=== PATIENT | female | born 1990 | race Caucasian/White ===

== ENCOUNTER 2016-07-06 21:28 | Emergency (ER) | payer OTHER ==
[2016-07-06] MEDS ORDERED: Ketorolac INJ* 60 MG/2 ML VIAL IM ONE (21:29)
[2016-07-06] MEDS ORDERED: HYDROcodone/ACETAMIN 5-325 MG* 1 TAB PO ONE (21:30)
[2016-07-06 21:34] VITALS: BP 123/74
[2016-07-06] MEDS ORDERED: Acetaminop/Codeine 30 MG TAB* 1 TAB (300 MG/30 MG) PO ONE ×2 (21:36→22:01)
[2016-07-06] MEDS ORDERED: Silver Sulfadiazine 1%* 20 GM TOPICAL ONE (21:37)
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
[2016-07-06] MEDS ORDERED: Acetaminop/Codeine 30 MG TAB* 1 TAB (300 MG/30 MG) ONE ×2 (22:05→22:06)
== END 2016-07-06 22:09 | disposition home or self-care (01) ==
LOC: UCCORT 21:28
DX: T24.211A Burn of second degree of right thigh, initial encounter (principal); T31.0 Burns involving less than 10% of body surface; X12.XXXA Contact with other hot fluids, initial encounter; Y93.9 Activity, unspecified; Y92.9 Unspecified place or not applicable; Z88.5 Allergy status to narcotic agent
CPT/HCPCS: 96372; 99213; A9270-GY; G0463; J1885

== ENCOUNTER 2017-01-15 16:18 | Emergency (ER) | payer OTHER ==
[2017-01-15 16:32] VITALS: BP 130/87
[2017-01-15] MEDS ORDERED: Ketorolac INJ* 60 MG/2 ML VIAL IM ONE (16:41)
--- NOTE | 2017-01-15 16:41 | UC ---
Dental HPI - HPI Summary HPI Summary: patient had wisdom teeth extracted on 01/05. has had increased pain and swelling of the mouth. cannot eat or chew - History of Current Complaint Chief Complaint: UCDentalProblem Stated Complaint: DENTAL WISDOM TEETH Time Seen by Provider: 01/15/17 16:26 Hx Obtained From: Patient Hx Last Menstrual Period: - hasn't had a period ?: No Onset/Duration: Sudden Onset, Lasting Days Severity: Severe Related History: Previous Dental Care on Same Tooth, Swelling - Allergies/Home Medications Allergies/Adverse Reactions: Allergies Allergy/AdvReac Type Severity Reaction Status Date / Time Hydrocodone [From Vicodin] Allergy Mild Rash Verified 01/15/17 16:24 Oxycodone Allergy Mild Itching Verified 01/15/17 16:24 Home Medications: Home Medications Amoxicillin PO (*) [Amoxicillin 500 MG CAP*] 500 mg PO TID 01/15/17 [History Confirmed 01/15/17] Ibuprofen TAB* [Advil TAB*] 800 mg PO Q8H PRN 01/15/17 [History Confirmed ] oxyCODONE/Acetamin 5/325 MG* [Percocet 5/325 TAB*] 1 tab PO Q4H PRN 01/15/17 [ History Confirmed 01/15/17] PMH/Surg Hx/FS Hx/Imm Hx Previously Healthy: Yes - Surgical History Surgical History: Yes Surgery Procedure, Year, and Place: Tonsillectomy,Sigmoidoscopy,3 oral surgeries , wisdom teeth extraction - Family History Known Family History: Positive: Cardiac Disease, Hypertension, Diabetes - Social History Alcohol Use: None Substance Use Type: None Smoking Status (MU): Never Smoked Tobacco Have You Smoked in the Last Year: No - Immunization History Most Recent Tetanus Shot: 2-3 years ago Review of Systems Constitutional: Negative Skin: Negative ENT: Dental Pain, Ear Ache Respiratory: Negative Cardiovascular: Negative Gastrointestinal: Negative Genitourinary: Negative Motor: Negative Neurovascular: Negative Musculoskeletal: Negative Neurological: Negative Psychological: Negative All Other Systems Reviewed And Are Negative: Yes Physical Exam Triage Information Reviewed: Yes Appearance: Well-Nourished, Ill-Appearing, Pain Distress Vital Signs: Initial Vital Signs Temp 99.5 F 01/15/17 16:27 Pulse 71 01/15/17 16:27 Resp 16 01/15/17 16:27 BP 130/87 01/15/17 16:27 Pulse Ox 99 01/15/17 16:27 Vital Signs Reviewed: Yes Eye Exam: Normal Eyes: Positive: Conjunctiva Inflamed ENT: Positive: Pharynx normal, TMs normal Dental: Positive: Abscess @ - back lower jaw, Cervical Lymphadenopathy - left side, Other: - left lower jaw is inflammed, purulent exudate noted from the most posterior molar Respiratory Exam: Normal Respiratory: Positive: Chest non-tender, Lungs clear, Normal breath sounds Cardiovascular Exam: Normal Cardiovascular: Positive: RRR, No Murmur, Pulses Normal Abdominal Exam: Normal Abdomen Description: Positive: Nontender, No Organomegaly, Soft Bowel Sounds: Positive: Present Musculoskeletal Exam: Normal Neurological Exam: Normal Psychological Exam: Normal Skin Exam: Normal Dental Complaint Course/Dx - Differential Dx/Diagnosis Differential Diagnosis/Dx: Dental Abscess, Fractured Tooth, Peritonsillar Abcess , Post Extraction Pain, Tonsillitis Provider Diagnoses: dental abcess. post dental extraction pain Discharge - Discharge Plan Condition: Stable Disposition: HOME Prescriptions: Amoxicillin/Clavulanate TAB* [Augmentin TAB 875*] 875 mg PO BID #14 tab Patient Education Materials: Toothache (ED) Referrals: Rogerio David MD [Primary Care Provider] - Additional Instructions: 1. take the augmentin and stop the amoxicillin 2. Coconut oil gargles as we discussed. 3. Take the meloxicam daily 4. No ibuprofen products till 1 am today 5. Follow up with Sr Gil this week if not improving.
[2017-01-15] MEDS ORDERED: Amoxicillin/Clavulanate TAB* 875 MG PO ONE (16:46)
== END 2017-01-15 17:26 | disposition home or self-care (01) ==
LOC: UCCORT 16:18
DX: K04.7 Periapical abscess without sinus (principal); K08.409 Partial loss of teeth, unspecified cause, unspecified class; Z88.5 Allergy status to narcotic agent
CPT/HCPCS: 96372; 99212; A9270-GY; G0463; J1885

== ENCOUNTER 2017-09-30 18:51 | Emergency (ER) | payer OTHER ==
[2017-09-30 19:59] VITALS: BP 144/88
[2017-09-30] MEDS ORDERED: Ketorolac INJ* 30 MG/ML 1 ML VIAL IM ONE (20:59)
[2017-09-30] MEDS ORDERED: Cyclobenzaprine TAB* 10 MG PO ONE (21:00)
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
== END 2017-09-30 21:21 | disposition home or self-care (01) ==
LOC: UCCORT 18:51
DX: M54.5 Low back pain (principal); Z88.5 Allergy status to narcotic agent
CPT/HCPCS: 96372; 99212; A9270-GY; G0463; J1885

== ENCOUNTER 2017-10-01 09:10 | Emergency (ER) | payer OTHER ==
--- NOTE | 2017-10-01 09:56 | UC ---
Back Pain HPI - HPI Summary HPI Summary: C/O back pain. Started 3 days ago. ? due to lifting a child. Along the whole low back - History of Current Complaint Stated Complaint: BACK PAIN Time Seen by Provider: 10/01/17 09:35 Hx Obtained From: Patient Hx Last Menstrual Period: - hasn't had a period ?: No Onset/Duration: Sudden Onset, Lasting Days - 3, Still Present Severity Initially: Moderate Severity Currently: Moderate Pain Intensity: 6 Back Pain: Is Discrete @ - low back Character: Sharp - with certain activities, Dull, Aching Aggravating Factor(s): Movement, Lifting, Bending Alleviating Factor(s): Rest Associated Signs And Symptoms: Negative: Weakness, Numbness, Tingling, Bladder Incontinence, Bowel Incontinence - Risk Factors AAA Risk Factors: Negative TAD Risk Factors: Negative Cauda Equina Risk Factors: Negative - Allergies/Home Medications Allergies/Adverse Reactions: Allergies Allergy/AdvReac Type Severity Reaction Status Date / Time hydrocodone Allergy Rash Verified 09/30/17 20:05 oxycodone Allergy Itching Verified 09/30/17 20:05 PMH/Surg Hx/FS Hx/Imm Hx Previously Healthy: Yes - Surgical History Surgical History: Yes Surgery Procedure, Year, and Place: Tonsillectomy,Sigmoidoscopy,3 oral surgeries , wisdom teeth extraction - Family History Known Family History: Positive: Cardiac Disease, Hypertension, Diabetes - Social History Occupation: Employed Full-time - daycare Lives: With Family Alcohol Use: None Substance Use Type: None Smoking Status (MU): Never Smoked Tobacco Have You Smoked in the Last Year: No - Immunization History Most Recent Tetanus Shot: 2-3 years ago Review of Systems Musculoskeletal: Myalgia Is Patient Immunocompromised?: No All Other Systems Reviewed And Are Negative: Yes Physical Exam Triage Information Reviewed: Yes Appearance: Well-Appearing, Well-Nourished, Pain Distress - mild Vital Signs Reviewed: Yes Eyes: Positive: Conjunctiva Clear Neck exam: Normal Respiratory Exam: Normal Cardiovascular Exam: Normal Musculoskeletal: Positive: ROM Limited @ - Lumbar extenstion with pain, Other: - Tenderness over the upper sacrum lower lumbar spinous processes. Neurological Exam: Normal Psychological Exam: Normal Skin Exam: Normal Back Pain Course/Dx - Differential Dx/Diagnosis Differential Diagnosis/HQI/PQRI: Arthritis, Herniated Disc, Strain, Sprain Provider Diagnoses: Acute Low back pain Discharge - Sign-Out/Discharge Documenting (check all that apply): Discharge/Admit/Transfer - Discharge Plan Condition: Stable Disposition: HOME Patient Education Materials: Acute Low Back Pain (ED) Referrals: Rogerio David MD [Primary Care Provider] - Additional Instructions: go to the chiropractor. Start Yoga. [employer] search "beginning yoga for back pain" - Billing Disposition and Condition Condition: STABLE Disposition: HOME
[2017-10-01 10:16] VITALS: BP 127/83
== END 2017-10-01 10:38 | disposition home or self-care (01) ==
LOC: UCCORT 09:10
DX: M54.5 Low back pain (principal); Z88.5 Allergy status to narcotic agent
CPT/HCPCS: 99211; G0463

== ENCOUNTER 2017-12-22 15:50 | Emergency (ER) | payer OTHER ==
[2017-12-22 16:19] VITALS: BP 134/98
[2017-12-22] MEDS ORDERED: Ibuprofen TAB* 400 MG PO ONE (16:37)
--- NOTE | 2017-12-22 16:39 | UC ---
Throat Pain/Nasal Juliano HPI - HPI Summary HPI Summary: 27 y/o female presents to the urgent care c/o sore throat and fever since yesterday. Pt reports pain w/ swallowing is 6/10. She has taking Tylenol PO w/o any improvement. Last dose taken around 1500PM. Pt denies cough, SON chest pain , abdominal pain, dizziness, N/V/D. - History of Current Complaint Chief Complaint: UCGeneralIllness Stated Complaint: ST Time Seen by Provider: 12/22/17 16:26 Hx Obtained From: Patient Hx Last Menstrual Period: 11/28/17 ?: No Onset/Duration: Gradual Onset, Lasting Days - 1 day, Still Present, Worse Since - this morning Severity: Moderate Pain Intensity: 6 Pain Scale Used: 0-10 Numeric Cough: None Associated Signs & Symptoms: Positive: Dysphagia, Fever - Epiglottits Risk Factors Epiglottis Risk Factors: Negative - Allergies/Home Medications Allergies/Adverse Reactions: Allergies Allergy/AdvReac Type Severity Reaction Status Date / Time hydrocodone Allergy Rash Verified 12/22/17 16:19 oxycodone Allergy Itching Verified 12/22/17 16:19 Home Medications: Home Medications Cetirizine* [ZyrTEC 10 MG TAB*] 10 mg PO DAILY 12/22/17 [History Confirmed 12/22] Montelukast Sodium TAB* [Singulair 10 MG TAB*] 10 mg PO DAILY 12/22/17 [History Confirmed 12/22/17] PMH/Surg Hx/FS Hx/Imm Hx Previously Healthy: Yes Endocrine History: Hypothyroidism - hailee thyroditis Respiratory History: Asthma - controlled - Surgical History Surgical History: Yes Surgery Procedure, Year, and Place: Tonsillectomy,Sigmoidoscopy,3 oral surgeries , wisdom teeth extraction - Family History Known Family History: Positive: Cardiac Disease, Hypertension, Diabetes - Social History Occupation: Employed Full-time Lives: With Family Alcohol Use: None Substance Use Type: None Smoking Status (MU): Never Smoked Tobacco Have You Smoked in the Last Year: No - Immunization History Most Recent Tetanus Shot: 2-3 years ago Review of Systems Constitutional: Fever, Chills Skin: Negative Eyes: Negative ENT: Sore Throat Respiratory: Negative Cardiovascular: Negative Gastrointestinal: Negative Genitourinary: Negative Motor: Negative Neurovascular: Negative Musculoskeletal: Negative Neurological: Headache Psychological: Negative Is Patient Immunocompromised?: No All Other Systems Reviewed And Are Negative: Yes Physical Exam - Summary Physical Exam Summary: VITAL SIGNS: Reviewed. GENERAL: Patient is a well developed and nourished female who is sitting comfortable in the examining table. Patient is not in any acute respiratory distress. HEAD AND FACE: No signs of trauma. No ecchymosis, hematomas or skull depressions. No sinus tenderness. EYES: PERRLA, EOMI x 2, No injected conjunctiva, no nystagmus. No photophobia. EARS: Hearing grossly intact. Ear canals and tympanic membranes are within normal limits. MOUTH: Positive pharynx with erythema, no exudates, mild palatal petechiae. No tonsillar enlargement. Uvula in midline. NECK: Supple, trachea is midline, Positive anterior cervical lymphadenopathy, no JVD, no carotid bruit, no c-spine tenderness, neck with full ROM. No meningeal signs, no Kernig's or brudzinskis signs. CHEST: Symmetric, no tenderness at palpation LUNGS: Clear to auscultation bilaterally. No wheezing or crackles. CVS: Regular rate and rhythm, S1 and S2 present, no murmurs or gallops appreciated. ABDOMEN: Soft, non-tender. No signs of distention. No rebound no guarding, and no masses palpated. Bowel sounds are normal. EXTREMITIES: FROM in all major joints, no edema, no cyanosis or clubbing. NEURO: Alert and oriented x 3. No acute neurological deficits. Speech is normal and follows commands. SKIN: Dry and warm Triage Information Reviewed: Yes Vital Signs: Initial Vital Signs Temp 99.0 F 12/22/17 16:15 Pulse 101 12/22/17 16:15 Resp 17 12/22/17 16:15 BP 134/98 12/22/17 16:15 Pulse Ox 99 12/22/17 16:15 Throat Pain/Nasal Course/Dx - Course Course Of Treatment: 27 y/o female presents to the urgent care c/o sore throat and fever since yesterday. Pt reports pain w/ swallowing is 6/10. She has taking Tylenol PO w/o any improvement. Last dose taken around 1500PM. Pt denies cough, SON chest pain, abdominal pain, dizziness, N/V/D.Hx obtained. Pt w/ pharyngitis on examination. Rapid strep ordered: result: positive. Strep pharyngitis. Rx Amoxicillin PO and Ibuprofen PO for pain and swelling. Pt given Ibuprofen PO at the clinic since Temp: 101F. Pt tolerated well medication. PT Advised on hand washing to avoid spreading. Also advised to rest, eat well and avoid strenuous exercise. If symptoms do not improve or worsen advised to return to the urgent care or f/u with her PCP for further evaluation and treatment.Pt's BP is elevated today advised to decrease salt in diet, monitor BP and f/u with PCP for further management. PT understood and agreed w/ plan of care. - Differential Dx/Diagnosis Differential Diagnosis/HQI/PQRI: Laryngitis, Mononucleosis, Pharyngitis, Sinusitis, Tonsillitis Provider Diagnoses: 1- Strep pharyngitis. 2-fever. 3- Elevated BP w/o Hx of HTN Discharge - Sign-Out/Discharge Documenting (check all that apply): Patient Departure - D/C home - Discharge Plan Condition: Stable Disposition: HOME Prescriptions: Amoxicillin PO (*) [Amoxicillin 500 MG CAP*] 500 mg PO Q12H #20 cap Patient Education Materials: Strep Throat (ED), Low-Sodium Diet (ED) Referrals: Rogerio David MD [Primary Care Provider] - 3 Days Additional Instructions: 1- Please take the full course of the antibiotic to avoid resistance. 2-Please take ibuprofen PO q6-8hrs prn as instructed after meals to alleviate pain and swelling. Increase fluid intake, eat well, rest and avoid strenuous exercise 3-If symptoms do not improve or worsen please return to the urgent care or f/u with your PCP in 3 days for further evaluation and treatment. 4-Your BP is elevated today. please decrease salt in your diet, monitor BP and if it continues to be elevated please f/u with your PCP for further management - Billing Disposition and Condition Condition: STABLE Disposition: Home
== END 2017-12-22 16:53 | disposition home or self-care (01) ==
LOC: UCCORT 15:50
DX: J02.0 Streptococcal pharyngitis (principal); R50.9 Fever, unspecified; R03.0 Elevated blood-pressure reading, without diagnosis of hypertension; Z88.5 Allergy status to narcotic agent; J02.9 Acute pharyngitis, unspecified; Z88.8 Allergy status to other drugs, medicaments and biological substances
CPT/HCPCS: 87651; 99212; A9270-GY; G0463

== ENCOUNTER 2018-12-08 09:04 | Emergency (ER) | payer OTHER ==
--- NOTE | 2018-12-08 09:13 | UC ---
Nausea/Vomiting/Diarrhea HPI - HPI Summary HPI Summary: 7 wk pt. w/ her 3rd child c/o continued vomiting. reports having hyperemeis gravidum w/ her other children as well. unable to keep solids down and some fluids. very constipated. can keep some fluids down. +nausea. - History of Current Complaint Chief Complaint: UCGI Stated Complaint: MORNING SICKNESS,DEHYDRATED Time Seen by Provider: 12/08/18 09:13 Hx Obtained From: Patient Hx Last Menstrual Period: 07/26/18 Pain Intensity: 0 Pain Scale Used: 0-10 Numeric Aggravating Factor(s): Nothing Alleviating Factor(s): Nothing - Allergies/Home Medications Allergies/Adverse Reactions: Allergies Allergy/AdvReac Type Severity Reaction Status Date / Time hydrocodone Allergy Rash Verified 12/08/18 09:19 oxycodone Allergy Itching Verified 12/08/18 09:19 Home Medications: Home Medications Ondansetron ODT TAB* [Zofran 4 MG Odt TAB*] 4 mg PO Q4H PRN 12/08/18 [History Confirmed 12/08/18] PMH/Surg Hx/FS Hx/Imm Hx Previously Healthy: Yes Endocrine History: Thyroid Disease - Surgical History Surgical History: Yes Surgery Procedure, Year, and Place: Tonsillectomy,Sigmoidoscopy,3 oral surgeries , wisdom teeth extraction - Family History Known Family History: Positive: Cardiac Disease, Hypertension, Diabetes - Social History Alcohol Use: None Substance Use Type: None Smoking Status (MU): Never Smoked Tobacco Have You Smoked in the Last Year: No - Immunization History Most Recent Tetanus Shot: 2-3 years ago Vaccination Up to Date: Yes Review of Systems All Other Systems Reviewed And Are Negative: Yes Constitutional: Negative: Fever, Chills Skin: Negative: Rash Respiratory: Positive: Negative Cardiovascular: Positive: Negative Gastrointestinal: Positive: Vomiting, Nausea. Negative: Abdominal Pain, Diarrhea Genitourinary: Negative: Dysuria Neurological: Negative: Headache Physical Exam Triage Information Reviewed: Yes Appearance: Well-Appearing Vital Signs Reviewed: Yes Respiratory Exam: Normal Cardiovascular Exam: Normal Abdomen Description: Positive: Nontender Naus/Vom/Diarrhea Course/Dx - Course Course Of Treatment: Excess vomiting x2 days in a pt. w/ hx of hyperemesis gravidum. Suspect this dx today. ABle to give her fluids and discussed ways to manage this. No ketones on UA but is constipated. Of note she has thyroid disease and should f/u to ensure TSH is w/in appropriate range. should f/u w/ ob. vitals good, pt stable. - Differential Dx/Diagnosis Differential Diagnoses - Female: Appendicitis, Dehydration Provider Diagnosis: Hyperemesis gravidarum Condition At Discharge: Good Discharge - Sign-Out/Discharge Documenting (check all that apply): Patient Departure All imaging exams completed and their final reports reviewed: No Studies - Discharge Plan Condition: Good Disposition: HOME Prescriptions: Pyridoxine TAB* [Vitamin B6 TAB*] 25 mg PO Q6HR 7 Days #21 tab MDD 200mg/day Patient Education Materials: Hyperemesis Gravidarum (ED) Referrals: Rogerio David MD [Primary Care Provider] - Additional Instructions: Of note they are not recommending zofran for hyperemesis unless prescribed by OB. If worsening or not improving please follow up with OB - Billing Disposition and Condition Condition: GOOD Disposition: Home - Attestation Statements Provider Attestation: Per institutional requirements, I have reviewed the chart, however, I was not consulted specifically or made aware of this patient by the midlevel provider. I did not personally evaluate, interact with , or disposition this patient.
[2018-12-08] MEDS ORDERED: NS 0.9% 1000 ML** 1,000 ML IV ONE (09:58)
[2018-12-08 10:57] VITALS: BP 120/74
--- NOTE | 2018-12-10 07:27 | UC ---
- Progress Note Progress Note: urine final - no growth no change bridgett 12/10/18 Course/Dx - Diagnoses Provider Diagnoses: Hyperemesis gravidarum Discharge - Sign-Out/Discharge Documenting (check all that apply): Post-Discharge Follow Up All imaging exams completed and their final reports reviewed: No Studies - Discharge Plan Condition: Good Disposition: HOME Prescriptions: Pyridoxine TAB* [Vitamin B6 TAB*] 25 mg PO Q6HR 7 Days #21 tab MDD 200mg/day Patient Education Materials: Hyperemesis Gravidarum (ED) Referrals: Rogerio David MD [Primary Care Provider] - Additional Instructions: Of note they are not recommending zofran for hyperemesis unless prescribed by OB. If worsening or not improving please follow up with OB - Billing Disposition and Condition Condition: GOOD Disposition: Home
== END 2018-12-08 10:50 | disposition home or self-care (01) ==
LOC: UCCORT 09:04
DX: O21.0 Mild hyperemesis gravidarum (principal); Z3A.01 Less than 8 weeks gestation of pregnancy
CPT/HCPCS: 81003; 87086; 96360; 99212; G0463

== ENCOUNTER 2019-02-03 08:21 | Emergency (ER) | payer MEDICAID, OTHER ==
[2019-02-03 08:36] VITALS: BP 123/76
--- NOTE | 2019-02-03 08:51 | UC ---
FLU HPI - HPI Summary HPI Summary: Pt presents with gradual onset of nasal congestion, cough, generalized malaise X 2 days. Pt is ~ 16 weeks and has two young children at home. Pt states that she has induced nausea daily. Pt has asthma, began taking her cetirizine PO three days ago but is not taking montelukast and has asthma. Pt states she has chest congestion and some "burning in chest" - History of Current Complaint Chief Complaint: UCGeneralIllness Stated Complaint: SINUS COMPLAINT Time Seen by Provider: 02/03/19 08:27 Hx Obtained From: Patient Hx Last Menstrual Period: 07/26/18 ?: Yes Onset/Duration: Gradual Onset, Lasting Days, Still Present, Worse Since - onset Severity Currently: Moderate Severity Initially: Mild Pain Intensity: 0 Associated Signs & Symptoms: Positive: Myalgia, Cough, Nasal Congestion, Vomiting Related Hx: Possible Flu/Infectious Exposure - Risk Factors Influenza Risk Factors: Negative - Allergy/Home Medications Allergies/Adverse Reactions: Allergies Allergy/AdvReac Type Severity Reaction Status Date / Time hydrocodone Allergy Rash Verified 02/03/19 08:36 oxycodone Allergy Itching Verified 02/03/19 08:36 Home Medications: Home Medications Acetaminophen [Tylenol] 2 tab PO ONCE 02/03/19 [History Confirmed 02/03/19] PMH/Surg Hx/FS Hx/Imm Hx Previously Healthy: Yes Respiratory History: Asthma - Surgical History Surgical History: Yes Surgery Procedure, Year, and Place: Tonsillectomy, Sigmoidoscopy, 3 oral surgeries, wisdom teeth extraction - Family History Known Family History: Positive: Cardiac Disease, Hypertension, Diabetes - Social History Occupation: Employed Full-time Lives: With Family Alcohol Use: None Substance Use Type: None Smoking Status (MU): Never Smoked Tobacco Have You Smoked in the Last Year: No - Immunization History Most Recent Tetanus Shot: 2-3 years ago Vaccination Up to Date: Yes Review of Systems All Other Systems Reviewed And Are Negative: Yes Constitutional: Positive: Fatigue Skin: Positive: Negative Eyes: Positive: Negative ENT: Positive: Sinus Congestion Respiratory: Positive: Cough Cardiovascular: Positive: Negative Gastrointestinal: Positive: Negative Genitourinary: Positive: Negative Motor: Positive: Negative Neurovascular: Positive: Negative Musculoskeletal: Positive: Myalgia Neurological: Positive: Negative Psychological: Positive: Negative Is Patient Immunocompromised?: No Physical Exam Triage Information Reviewed: Yes Appearance: Ill-Appearing Vital Signs: Initial Vital Signs Temp 98.3 F 02/03/19 08:29 Pulse 89 02/03/19 08:29 Resp 18 02/03/19 08:29 BP 123/76 02/03/19 08:29 Pulse Ox 99 02/03/19 08:29 Vital Signs Reviewed: Yes Eye Exam: Normal ENT: Positive: Nasal congestion Dental Exam: Normal Neck exam: Normal Respiratory Exam: Normal Cardiovascular Exam: Normal Musculoskeletal Exam: Normal Neurological Exam: Normal Psychological Exam: Normal Skin Exam: Normal Flu Course/Dx - Differential Dx/Diagnosis Differential Diagnosis/HQI/PQRI: Bronchitis, Upper Respiratory Infection Provider Diagnosis: Sinusitis Discharge ED - Sign-Out/Discharge Documenting (check all that apply): Patient Departure All imaging exams completed and their final reports reviewed: No Studies - Discharge Plan Condition: Stable Disposition: HOME Prescriptions: Amoxicillin PO (*) [Amoxicillin 875 MG (*)] 875 mg PO Q12H #20 tab Patient Education Materials: Sinusitis (ED) Referrals: Rogerio David MD [Primary Care Provider] - If Needed - Billing Disposition and Condition Condition: STABLE Disposition: Home
[2019-02-03 09:02] LABS: Influenza A Molecular NEGATIVE (Negative); Influenza B Molecular NEGATIVE (Negative)
== END 2019-02-03 09:15 | disposition home or self-care (01) ==
LOC: UCCORT 08:21
DX: O99.512 Diseases of the respiratory system complicating pregnancy, second trimester (principal); J32.9 Chronic sinusitis, unspecified; Z3A.16 16 weeks gestation of pregnancy
CPT/HCPCS: 99212; G0463

== ENCOUNTER 2019-02-21 09:11 | Emergency (ER) | payer MEDICAID, OTHER ==
[2019-02-21] MEDS ORDERED: NS 0.9% 1000 ML** 1,000 ML IV ONE (10:01)
--- NOTE | 2019-02-21 11:08 | UC ---
Abdominal Pain Female HPI - HPI Summary HPI Summary: nausea / vomiting x 2 days + dizziness, fatigue pt. is 18 weeks of gestation hx of hyper-emesis. called her pcp and she was refereed to urgent care for fluid treatment due to possible dehydration no fever, no chills, no abdominal pain , no vaginal bleeding discharge, no dysuria - History of Current Complaint Chief Complaint: UCGI Stated Complaint: 18 WEEKS ,DIZZY Time Seen by Provider: 02/21/19 09:58 Hx Obtained From: Patient Hx Last Menstrual Period: October 2018 ?: Yes Onset/Duration: Gradual Onset, Lasting Days - 2, Still Present Timing: Constant Severity Initially: Moderate Severity Currently: Moderate Pain Intensity: 2 Location: Diffuse Radiates: No Character: Not Applicable Aggravating Factor(s): Nothing Alleviating Factor(s): Nothing Associated Signs and Symptoms: Positive: Dizzy, Decreased Appetite, Nausea, Vomiting. Negative: Diaphoresis, Fever, Cough, Chest Pain, Back Pain, Constipation, Blood in Stool, Urinary Symptoms, Vaginal Bleeding, Vaginal Discharge, Diarrhea Allergies/Adverse Reactions: Allergies Allergy/AdvReac Type Severity Reaction Status Date / Time hydrocodone Allergy Rash Verified 02/21/19 09:56 oxycodone Allergy Itching Verified 02/21/19 09:56 Home Medications: Home Medications Cholecalciferol TAB* [Vitamin D TAB*] 02/21/19 [History] PMH/Surg Hx/FS Hx/Imm Hx - Additional Past Medical History Additional PMH: hx hyper-emesis. Endocrine History: Hypothyroidism - Surgical History Surgical History: Yes Surgery Procedure, Year, and Place: Tonsillectomy, Sigmoidoscopy, 3 oral surgeries, wisdom teeth extraction - Family History Known Family History: Positive: Cardiac Disease, Hypertension, Diabetes - Social History Alcohol Use: None Substance Use Type: None Smoking Status (MU): Never Smoked Tobacco Have You Smoked in the Last Year: No - Immunization History Most Recent Tetanus Shot: 2-3 years ago Vaccination Up to Date: Yes Review of Systems All Other Systems Reviewed And Are Negative: Yes Constitutional: Positive: Negative Skin: Positive: Negative Eyes: Positive: Negative ENT: Positive: Negative Respiratory: Positive: Negative Gastrointestinal: Positive: Vomiting, Nausea Is Patient Immunocompromised?: No Physical Exam Triage Information Reviewed: Yes Appearance: Well-Appearing, No Pain Distress, Well-Nourished Vital Signs: Initial Vital Signs Temp 99 F 02/21/19 09:46 Pulse 92 02/21/19 09:46 Resp 18 02/21/19 09:46 BP 113/72 02/21/19 09:46 Pulse Ox 99 02/21/19 09:46 Vital Signs Reviewed: Yes Eye Exam: Normal Eyes: Positive: Conjunctiva Clear ENT: Positive: Normal ENT inspection, Hearing grossly normal, Pharynx normal Neck: Positive: Supple, Nontender Respiratory: Positive: Chest non-tender, Lungs clear, Normal breath sounds Cardiovascular: Positive: RRR, No Murmur, Pulses Normal Abdomen Description: Positive: Nontender, Soft. Negative: CVA Tenderness (R), CVA Tenderness (L), Distended, Guarding Bowel Sounds: Positive: Present Abd Pain Female Course/Dx - Differential Dx/Diagnosis Provider Diagnosis: Hyperemesis gravidarum Discharge ED - Sign-Out/Discharge Documenting (check all that apply): Patient Departure All imaging exams completed and their final reports reviewed: No Studies - Discharge Plan Condition: Stable Disposition: HOME Referrals: Rogerio David MD [Primary Care Provider] - - Billing Disposition and Condition Condition: STABLE Disposition: Home
[2019-02-21 11:31] VITALS: BP 96/46
== END 2019-02-21 11:23 | disposition home or self-care (01) ==
LOC: UCCORT 09:11
DX: O21.0 Mild hyperemesis gravidarum (principal); O99.282 Endocrine, nutritional and metabolic diseases complicating pregnancy, second trimester; E03.9 Hypothyroidism, unspecified; Z88.5 Allergy status to narcotic agent; Z3A.18 18 weeks gestation of pregnancy
CPT/HCPCS: 96360; 99211; G0463